=== PATIENT | female | born 1970 | race Caucasian/White ===

== ENCOUNTER 2023-04-02 07:25 | Observation (INO) | payer OTHER ==
[2023-04-01 10:16] LABS: BASOPHILS # (AUTO) 0.1 (0.0-0.1); BASOPHILS % 1.2 % (0.0-1.0); EOSINOPHILS # (AUTO) 0.1 (0.0-0.4); EOSINOPHILS % 1.9 % (0.0-6.0); HEMATOCRIT 43.5 % (34.2-44.1); HEMOGLOBIN 13.7 g/dL (12.0-16.0); LYMPHOCYTES # (AUTO) 1.4 (1.0-3.2); LYMPHOCYTES % 27.4 % (18.0-39.1); MEAN CORPUSCULAR HEMOGLOBIN 27.9 pg (28-32); MEAN CORPUSCULAR HGB CONC 31.5 g/dL (31-35); MEAN CORPUSCULAR VOLUME 88.6 fL (81-99); MONOCYTES # (AUTO) 0.4 (0.2-0.8); MONOCYTES % 8.2 % (4.4-11.3); NEUTROPHILS # (AUTO) 3.1 (2.1-6.9); NEUTROPHILS % 60.9 % (38.7-80.0); PLATELET COUNT 186 x10e3/uL (140-360); RED BLOOD COUNT 4.91 x10e6/uL (3.6-5.1); RED CELL DISTRIBUTION WIDTH 14.1 % (11.7-14.4)
[2023-04-01 10:36] LABS: INR 1.09; PARTIAL THROMBOPLASTIN TIME 29.8 seconds (23.8-35.5); PROTHROMBIN TIME 14.6 seconds (11.9-14.5)
[2023-04-01 10:43] LABS: ANION GAP 11.8 mmol/L (8-16); CALCIUM 8.7 mg/dL (8.4-10.2); CREATININE, SERUM 0.59 mg/dL (0.57-1.11); POTASSIUM 3.8 mmol/L (3.5-5.1)
[2023-04-02] VITALS (8 sets, daily range): BP systolic 102–110; BP diastolic 58–78
[~2023-04-02] VITALS: Ht 165.1 cm; Wt 56.7 kg
[~2023-04-02 07:25] MED LIST: ACETAMINOPHEN 1000 MG/100 ML 0 ML IV ONE; ALLEGRA ALLERGY60 MG PO; HYDROMORPHONE HC2 MG PO; LACTATED RINGER'S 1,000 ML ONE; LIDOCAINE 1% W/EPINEPHRINE 20 ML VIAL ONE; LYRICA150 MG PO; MULTIVITAMINS1 EAC8 PO; ONDANSETRON ODT8 MG PO; PAMELOR25 MG PO; SODIUM CHLORIDE 0.9% 250ML 250 ML ONE; SUGAMMADEX SODIUM 200 MG/2 ML VIAL IV ONE; THROMBIN FOR SOLN 5,000 UNIT VIAL ONE; THYROID NP PO; Vancomycin IV 0 MG ONE; Vancomycin IV 1 GM VIAL ONE; ZOLPIDEM TARTRAT5 MG PO
[2023-04-02] MEDS ORDERED: HYDROMORPHONE 1MG/1ML INJ IV PRN (09:30)
[2023-04-02] MEDS ORDERED: ZOLPIDEM TARTRATE 5 MG TAB PO PRN (09:30)
[2023-04-02] MEDS ORDERED: PROMETHAZINE HCL (IM) 25 MG/ML VIAL IM PRN (09:30)
[2023-04-02] MEDS ORDERED: ACETAMINOPHEN 325 MG TAB PO PRN (09:30)
[2023-04-02] MEDS ORDERED: CEPACOL SORE THROAT LOZENGES PO PRN (09:30)
[2023-04-02] MEDS ORDERED: MAGNESIUM/ALUMINUM/SIMETHICONE 30 ML UDC PO PRN (09:30)
[2023-04-02] MEDS: FENTANYL CITRATE/PF 100MCG/2 ML INJ ONE ×2 (09:35→09:40)
[2023-04-02] MEDS: ONDANSETRON HCL INJ 2MG/ML 2ML 2 MG/ML VIAL IV PRN (09:35)
[2023-04-02] MEDS: CARISOPRODOL 350 MG TAB PO PRN ×2 (09:47→22:51)
[2023-04-02] MEDS: HYDROMORPHONE 1MG/1ML INJ ONE ×2 (09:47→09:53)
[2023-04-02] MEDS ORDERED: METOCLOPRAMIDE HCL 10 MG/2ML VIAL ONE (10:30)
[2023-04-02] MEDS ORDERED: SEVOFLURANE INHAL SOLN 250 ML PEN BTL ONE (12:50)
[2023-04-02] MEDS ORDERED: POVIDONE IODINE 0.05% 0.05 % ML PO ONE (12:50)
[2023-04-02] MEDS ORDERED: LIDOCAINE HCL 2% LOCAL INJ 5 ML SDV VIAL INJ ONE (12:50)
[2023-04-02] MEDS ORDERED: DEXAMETHASONE SOD PHOS INJ 4 MG/ML SDV ONE (12:50)
[2023-04-02] MEDS ORDERED: PROPOFOL IV EMULSION 10 MG/ML 20 ML VIAL ONE (12:50)
[2023-04-02] MEDS ORDERED: ONDANSETRON HCL INJ 2MG/ML 2ML 2 MG/ML VIAL ONE (12:50)
[2023-04-02] MEDS: LACTATED RINGER'S 1,000 ML IV SCH ×2 (13:00→17:50)
[2023-04-02] MEDS ORDERED: FENTANYL CITRATE/PF 100MCG/2 ML INJ ONE (13:16)
[2023-04-02] MEDS: HYDROMORPHONE HCL 2 MG TAB PO SCH ×2 (14:29→22:45)
[2023-04-02] MEDS: ONDANSETRON HCL 4 MG ORAL DISINTEGRATING TAB PO SCH ×2 (14:30→22:45)
[2023-04-02] MEDS ORDERED: ZOLPIDEM TARTRATE 5 MG TAB PO SCH (21:00)
[2023-04-02] MEDS ORDERED: NORTRIPTYLINE HCL 25 MG CAP PO SCH (21:00)
[2023-04-02] MEDS ORDERED: PREGABALIN 75 MG CAP PO SCH (21:00)
[2023-04-02] MEDS: Vancomycin IV 1 GM in SODIUM CHLORIDE 0.9% 250ML 250 ML IV SCH (21:03)
[2023-04-03] MEDS: LACTATED RINGER'S 1,000 ML IV SCH (02:10)
[2023-04-03 04:00] VITALS: BP 106/50
[2023-04-03] MEDS: ONDANSETRON HCL INJ 2MG/ML 2ML 2 MG/ML VIAL IV PRN (06:50)
[2023-04-03 08:22] VITALS: BP 118/74
[2023-04-03] MEDS ORDERED: LORATADINE 10 MG TAB PO SCH (09:00)
[2023-04-03 09:06] VITALS: BP 118/74
[2023-04-03] MEDS: HYDROMORPHONE HCL 2 MG TAB PO SCH (09:21)
[2023-04-03] MEDS: ONDANSETRON HCL 4 MG ORAL DISINTEGRATING TAB PO SCH (09:22)
[2023-04-03] MEDS: Vancomycin IV 1 GM in SODIUM CHLORIDE 0.9% 250ML 250 ML IV SCH (09:24)
[2023-04-03 12:01] VITALS: BP 91/54
[2023-04-03] MEDS: CARISOPRODOL 350 MG TAB PO PRN (12:03)
== END 2023-04-03 12:24 | disposition home or self-care (01) ==
LOC: OR 07:25 → PACU V 09:38 → MED/SURG 10:45
PROVIDERS: ADMIT Neurological Surgery; ATTEND Neurological Surgery
DX: M50.120 Mid-cervical disc disorder, unspecified level (principal); Z01.810 Encounter for preprocedural cardiovascular examination; Z01.812 Encounter for preprocedural laboratory examination; Z01.818 Encounter for other preprocedural examination; E03.9 Hypothyroidism, unspecified; Z88.6 Allergy status to analgesic agent; Z88.1 Allergy status to other antibiotic agents; Z88.5 Allergy status to narcotic agent
CPT/HCPCS: 0223U; 20931; 22551; 22552; 22845; 36415; 71046; 72040; 76000; 80048; 85025; 85610; 85730; 86850; 86900; 88304; 88311; 93005; C1713 ×5; C1763; G0378 ×2; J1100; J1170; J2001; J2405 ×2; J2704; J2765; J3010; J3370 ×2; J7050 ×2; J7121; L8699; Q0162 ×2; J2550

== ENCOUNTER → 2023-05-07 | Outpatient (CLI) | payer OTHER ==
[~2023-05-07] MED LIST changes: -ACETAMINOPHEN 1000 MG/100 ML 0 ML IV ONE; -LACTATED RINGER'S 1,000 ML ONE; -LIDOCAINE 1% W/EPINEPHRINE 20 ML VIAL ONE; -SODIUM CHLORIDE 0.9% 250ML 250 ML ONE; -SUGAMMADEX SODIUM 200 MG/2 ML VIAL IV ONE; -THROMBIN FOR SOLN 5,000 UNIT VIAL ONE; -Vancomycin IV 0 MG ONE; -Vancomycin IV 1 GM VIAL ONE
== END ==
LOC: RAD 05-04 15:36
PROVIDERS: ATTEND Neurological Surgery
DX: M50.20 Other cervical disc displacement, unspecified cervical region (principal)
CPT/HCPCS: 72050